=== PATIENT | female | born 1970 | race Caucasian/White ===

== ENCOUNTER 2017-10-21 10:58 | Emergency (ER) | payer OTHER ==
[2017-10-21 11:24] VITALS: BP 136/87
--- NOTE | 2017-10-21 12:06 | UC ---
Lower Extremity/Ankle HPI - HPI Summary HPI Summary: Patient complains of pain to all of left foot at base of second and third toes of left foot. Patient is very active, exercises regularly, but denies specific event where pain started. Patient states she woke up with pain yesterday. Has tried ice and ibuprofen with minimal relief. Patient also has history of active plantar fasciitis in left foot and has been favoring that foot when she walks, and is concerned she has hurt this other part of her foot by compensating for her heel pain. Med history is none. Appointment with [facility] in one week. - History of Current Complaint Chief Complaint: UCLowerExtremity Stated Complaint: FOOT PAIN Time Seen by Provider: 10/21/17 11:47 Hx Obtained From: Patient Hx Last Menstrual Period: 09/03 Onset/Duration: Sudden Onset Severity Initially: Moderate Severity Currently: Moderate Pain Intensity: 7 Pain Scale Used: 0-10 Numeric Aggravating Factor(s): Standing Alleviating Factor(s): Rest Able to Bear Weight: Yes - Allergies/Home Medications Allergies/Adverse Reactions: Allergies Allergy/AdvReac Type Severity Reaction Status Date / Time erythromycin base Allergy Muscle Ache Verified 10/21/17 11:24 Home Medications: Home Medications Levothyroxine TAB* [Synthroid TAB*] 125 mcg PO 0800 10/21/17 [History Confirmed 10/21/17] Naproxen Sodium [Aleve] 440 mg PO 10/21/17 [History] PMH/Surg Hx/FS Hx/Imm Hx Previously Healthy: Yes - Surgical History Surgical History: Yes Surgery Procedure, Year, and Place: X2, hernia repair, breast reduction - Family History Known Family History: Positive: None - Social History Alcohol Use: Weekly Substance Use Type: None Smoking Status (MU): Never Smoked Tobacco Review of Systems Constitutional: Negative Skin: Negative Eyes: Negative ENT: Negative Respiratory: Negative Cardiovascular: Negative Gastrointestinal: Negative Genitourinary: Negative Motor: Negative Neurovascular: Negative Musculoskeletal: Other: Neurological: Negative All Other Systems Reviewed And Are Negative: Yes Physical Exam - Summary Physical Exam Summary: No erythema, extra warmth, ecchymosis, deformity noted to left foot or left toes. Mild swelling of second digit of left foot. No pain with passive flexion or extension of toes of left foot or with palpation of left foot. EMS intact on left foot. Triage Information Reviewed: Yes Appearance: Well-Appearing Vital Signs: Initial Vital Signs Temp 99.2 F 10/21/17 11:21 Pulse 87 10/21/17 11:21 Resp 18 10/21/17 11:21 BP 136/87 10/21/17 11:21 Pulse Ox 100 10/21/17 11:21 Vital Signs Reviewed: Yes Eye Exam: Normal Neck exam: Normal Respiratory Exam: Normal Cardiovascular Exam: Normal Abdominal Exam: Normal Musculoskeletal Exam: Normal Neurological Exam: Normal Psychological Exam: Normal Skin Exam: Normal Lower Extremity Course/Dx - Course Course Of Treatment: Patient complains of pain to all of left foot at base of second and third toes of left foot. Patient is very active, exercises regularly , but denies specific event where pain started. Patient states she woke up with pain yesterday. Has tried ice and ibuprofen with minimal relief. Patient also has history of active plantar fasciitis in left foot and has been favoring that foot when she walks, and is concerned she has hurt this other part of her foot by compensating for her heel pain. Med history is none. Appointment with [facility] roller in one week. Physical exam:No erythema, extra warmth, ecchymosis, deformity noted to left foot or left toes. Mild swelling of second digit of left foot. No pain with passive flexion or extension of toes of left foot or with palpation of left foot. PMS intact on left foot. Vital signs normal. Patient placed in a postop boot. Ice, elevation, rest, ibuprofen. Follow up with podiatry. - Differential Dx/Diagnosis Provider Diagnoses: foot pain. toe swelling Discharge - Sign-Out/Discharge Documenting (check all that apply): Patient Departure All imaging exams completed and their final reports reviewed: No Studies - Discharge Plan Condition: Stable Disposition: HOME Patient Education Materials: Foot Sprain (ED) Referrals: No Primary Care Phys,NOPCP [Primary Care Provider] - Additional Instructions: Ice, elevation, rest, ibuprofen for pain and swelling. Follow-up with podiatry Appointment. - Billing Disposition and Condition Condition: STABLE Disposition: Home
== END 2017-10-21 12:13 | disposition home or self-care (01) ==
LOC: UCEAST 10:58
DX: M79.672 Pain in left foot (principal); M79.89 Other specified soft tissue disorders; Z88.1 Allergy status to other antibiotic agents
CPT/HCPCS: 99202; G0463